=== PATIENT | male | born 1940 | race Caucasian/White ===

== ENCOUNTER 2019-09-12 15:15 | Emergency (ER) | payer MEDICARE, OTHER, SELFPAY | END 2019-09-12 16:55 | disposition home or self-care (01) | PROVIDERS: Emergency Provider Nurse Practitioner Family; Family Provider Internal Medicine; Visit Provider Nurse Practitioner Family | DX: S61.216A Laceration without foreign body of right little finger without damage to nail, initial encounter (principal); W23.0XXA Caught, crushed, jammed, or pinched between moving objects, initial encounter; Y92.009 Unspecified place in unspecified non-institutional (private) residence as the place of occurrence of the external cause; I10 Essential (primary) hypertension; Z79.01 Long term (current) use of anticoagulants; Z88.2 Allergy status to sulfonamides; Z87.891 Personal history of nicotine dependence | CPT/HCPCS: 12041; 73130; 99282; J2001 ==

== ENCOUNTER → 2019-10-01 11:13 | Outpatient (BNVA) | payer MEDICARE, OTHER, SELFPAY | PROVIDERS: Family Provider Internal Medicine; PCP Internal Medicine; Visit Provider Internal Medicine Cardiovascular Disease | DX: Z95.2 Presence of prosthetic heart valve (principal) | CPT/HCPCS: 85610 ==

== ENCOUNTER → 2019-10-16 10:52 | Outpatient (BNVA) | payer MEDICARE, OTHER, SELFPAY | PROVIDERS: Family Provider Internal Medicine; PCP Internal Medicine; Visit Provider Internal Medicine Cardiovascular Disease | DX: Z95.2 Presence of prosthetic heart valve (principal); I25.10 Atherosclerotic heart disease of native coronary artery without angina pectoris; I10 Essential (primary) hypertension; E78.5 Hyperlipidemia, unspecified; R60.9 Edema, unspecified | CPT/HCPCS: 85610 ==

== ENCOUNTER → 2019-10-27 10:08 | Outpatient (BNVA) | payer MEDICARE, OTHER, SELFPAY | PROVIDERS: Family Provider Internal Medicine; PCP Internal Medicine; Visit Provider Internal Medicine Cardiovascular Disease | DX: Z95.2 Presence of prosthetic heart valve (principal); I25.10 Atherosclerotic heart disease of native coronary artery without angina pectoris; I10 Essential (primary) hypertension; E78.5 Hyperlipidemia, unspecified; R60.9 Edema, unspecified | CPT/HCPCS: 85610 ==

== ENCOUNTER → 2019-11-03 10:39 | Outpatient (BNVA) | payer MEDICARE, OTHER, SELFPAY | PROVIDERS: Family Provider Internal Medicine; PCP Internal Medicine; Visit Provider Internal Medicine Cardiovascular Disease | DX: I25.10 Atherosclerotic heart disease of native coronary artery without angina pectoris (principal); I10 Essential (primary) hypertension; E78.5 Hyperlipidemia, unspecified; R60.9 Edema, unspecified; Z95.2 Presence of prosthetic heart valve | CPT/HCPCS: 85610 ==

== ENCOUNTER 2019-11-17 13:03 | Emergency (ER) | payer MEDICARE, OTHER, SELFPAY ==
[2019-11-17 13:05] VITALS: BP 133/78; PULSE 54; RESP 18; TEMP 36.9; O2SAT 62; BMI 27.9
--- NOTE | 2019-11-17 13:18 | ED_ITS ---
Entered by Tatiana Johnson, acting as scribe for Samy Jones MD HPI - SOB/Dyspnea General: Chief Complaint: General Medical Stated Complaint: BLE, HYPERGLYCEMIA Time Seen by Provider: 11/17/19 13:17 Source: family and EMS Mode of arrival: EMS Limitations: altered mental status and other (shortness of breath) History of Present Illness: MD elicited complaint: shortness of breath Onset (ago): day(s) Timing: constant and progressively worsening Severity: moderate Exacerbating factors: exertion and deep breaths Relieving factors: oxygen Treatment prior to arrival: oxygen Review of Systems Eyes: Denies: photophobia All/Imm: Denies: acute wheezing PFSH ED PFSH: Medical History (Updated 11/25/19 @ 00:00 by ) Atherosclerotic heart disease Patient had coronary bypass surgery along with aortic valve replacement on 05/06/2014. He had a DONOVAN to the LAD, saphenous venous graft to the OM branch of the circumflex artery and another Y graft from the obtuse marginal to the diagonal artery Coronary artery disease DJD (degenerative joint disease) Hyperlipidemia Hypertension Peripheral edema SAH (subarachnoid hemorrhage) from a fall Surgical History (Updated 11/17/19 @ 15:19 by Samy Jones MD) Aortic valve replaced Patient had a 23 mm bileaflet mechanical [place] valve at the aortic pos ition on 05/06/2014 History of tonsillectomy Hx of CABG Family History Other Alzheimers disease CAD (coronary artery disease) Social History Smoking and tobacco status: former smoker Alcohol intake: current Physical Exam Const: COMMON NORMALS: alert EXAM LIMITATIONS: no altered mental status GENERAL APPEARANCE: cooperative, well developed and in distress ORIENTATION/CONSCIOUSNESS: Yes awake; not confused HENMT: COMMON NORMALS: normocephalic, atraumatic, external ears normal and Normal external nose present HEAD & SCALP: normal to inspection, normocephalic and atraumatic FACE & SINUS: face symmetric NOSE: Normal external nose present EXTERNAL EAR: Yes external ears normal MOUTH: lip normal; no muffled voice Eye: COMMON NORMALS: EOMs intact bilaterally and conjunctivae normal GENERAL EYE: appearance normal, both eyes and all related structures CONJUNCTIVA: Yes conjunctivae normal Neck/C-Spine: GENERAL: Yes normal visual inspection and Yes trachea midline Resp: EFFORT & INSPECTION: Yes symmetric chest movement, Yes respiratory distress, Yes labored, Yes retractions and Yes uses accessory muscles AUSCULTATION: diminished lung sounds Cardio: COMMON NORMALS: regular rhythm RHYTHM: regular rhythm PERIPHERAL PULSES: radial pulses present GI: COMMON NORMALS: Soft to palpation INSPECTION: Yes normal to inspection PALPATION: Yes Soft to palpation, No Tenderness to palpation present (GI) and No Guarding due to palpation present (GI) Back/Pelvis: COMMON NORMALS: thoraco-lumbar ROM normal Extremity: COMMON NORMALS: normal to inspection GENERAL: Yes normal exam except as noted Neuro: COMMON NORMALS: moves all extremities, no focal motor deficits and no s ensory deficits noted SENSORIUM/ORIENTATION: Yes alert Psych: COMMON NORMALS: mental status grossly normal, Normal thought process present, cooperative, normal affect and speech normal SPEECH: Yes normal speech THOUGHT PROCESS: Normal thought process present Skin: COMMON NORMALS: no jaundice Course Vital Signs: Vital signs: Vital Signs Temperature 98.4 F 11/17/19 13:05 Pulse Rate 75 11/17/19 18:24 Respiratory Rate 27 H 11/17/19 18:24 Blood Pressure 146/85 11/17/19 18:24 Pulse Oximetry 92 11/17/19 18:24 MDM - SOB/Dyspnea Lab Data: Labs: Lab Results 11/17/19 11/17/19 11/17/19 Range/Units 13:25 13:35 13:53 WBC 15.8 H (4.0-10.0) 10^3/ uL RBC 3.18 L (4.1-5.3) 10^6/u L Hgb 9.7 L (11.7-16.6) g/dL Hct 31.6 L (42.0-52.0) % MCV 99.4 H (80-94) fL MCH 30.5 (28.0-34.0) pg MCHC 30.7 (30.0-36.0) g/dL RDW 13.6 (12.1-15.1) % Plt Count 159 (130-400) 10^3/c mm MPV 13.4 H (7.4-10.4) fL Neut % (Auto) 90.7 % Lymph % (Auto) 1.8 % [place] % (Auto) 6.6 % Eos % (Auto) 0.0 % Baso % (Auto) 0.1 % Neut # (Auto) 14.4 H (1.8-7.7) 10^3/u L Lymph # (Auto) 0.3 L (0.8-4.8) 10^3/u L [place] # (Auto) 1.0 H (0.2-0.9) 10^3/u L Eos # (Auto) 0.0 (0.0-0.8) 10^3/u L Baso # (Auto) 0.0 (0.0-0.1) 10^3/u L Nucleated RBC % (a uto) 0 % Nucleated RBCs # 0.0 /100WBC PT (10.5-13.3) SECO NDS INR (0.8-1.2) APTT (23.9-36.7) SECO NDS Specimen Type Arterial Sample Site Radial, left ABG pH 7.28 L (7.35-7.45) ABG pCO2 27.2 L (35-45) mmHg ABG pO2 64.6 L (80.0-100.0) mmH g ABG HCO3 12.8 L (22-26) mmol/L ABG Base Excess -12.6 L (-2.0-2.0) mmol/ L Marcio Test Pos Hematocrit 30.5 L (42-52) % O2 Delivery Device Nrb O2 Liters/Min 15.0 % Contact Acid Plant Operator Helper ID monro Sodium (136-145) mmol/L Potassium (3.5-5.1) mmol/L Chloride (98-107) mmol/L Carbon Dioxide (22-29) mmol/L Anion Gap (5-19) BUN (8-23) mg/dL Creatinine (0.7-1.2) mg/dL Glucose (65-115) mg/dL POC Glucose (70-110) mg/dL Calculated Osmolal ity (285-295) mOsm/k g Lactic Acid (0.5-2.2) mmol/L Lactate 4.4 H* (0.5-2.2) mmol/L Calcium (8.5-10.5) mg/dL Phosphorus (2.5-4.5) mg/dL Total Bilirubin (0.15-1.2) mg/dL AST (0-40) U/L ALT (0-41) U/L Alkaline Phosphata se (40-130) IU/L Troponin T Baselin e (0-15) ng/mL Troponin T 120 Min kaibab (0-15) ng/mL Delta Troponin T (0-10) ABS# NT-Pro-B Natriuret Pep (0-450) pg/mL Total Protein (6.6-8.7) g/dL Albumin (3.5-5.2) g/dL Globulin (1.3-4.6) g/dL Urine Color (Yellow) Urine Appearance (CLEAR) Urine pH (5-7) Ur Specific Gravit y (1.005-1.030) Urine Protein (Negative) Urine Glucose (UA) (Normal) Urine Ketones (Negative) Urine Blood (Negative) Urine Nitrate (Negative) Urine Bilirubin (NEGATIVE) Urine Urobilinogen (Negative) mg/dL Ur Leukocyte Jessy ase (Negative) Urine RBC (0-2) /hpf Urine WBC (0-5) /hpf Ur Squamous Epith Cells (0-5) Urine Bacteria (NONE) Hyaline Casts Influenza Type A A g (Negative) POC Influenza B Ag (Negative) 11/17/19 11/17/19 11/17/19 Range/Units 13:53 13:53 13:53 WBC (4.0-10.0) 10^3/ uL RBC (4.1-5.3) 10^6/u L Hgb (11.7-16.6) g/dL Hct (42.0-52.0) % MCV (80-94) fL MCH (28.0-34.0) pg MCHC (30.0-36.0) g/dL RDW (12.1-15.1) % Plt Count (130-400) 10^3/c mm MPV (7.4-10.4) fL Neut % (Auto) % Lymph % (Auto) % [place] % (Auto) % Eos % (Auto) % Baso % (Auto) % Neut # (Auto) (1.8-7.7) 10^3/u L Lymph # (Auto) (0.8-4.8) 10^3/u L [place] # (Auto) (0.2-0.9) 10^3/u L Eos # (Auto) (0.0-0.8) 10^3/u L Baso # (Auto) (0.0-0.1) 10^3/u L Nucleated RBC % (a uto) % Nucleated RBCs # /100WBC PT 25.90 H (10.5-13.3) SECO NDS INR 2.28 H (0.8-1.2) APTT 53.2 H (23.9-36.7) SECO NDS Specimen Type Sample Site ABG pH (7.35-7.45) ABG pCO2 (35-45) mmHg ABG pO2 (80.0-100.0) mmH g ABG HCO3 (22-26) mmol/L ABG Base Excess (-2.0-2.0) mmol/ L Marcio Test Hematocrit (42-52) % O2 Delivery Device O2 Liters/Min % Contact Acid Plant Operator Helper ID Sodium 130 L (136-145) mmol/L Potassium 5.5 H (3.5-5.1) mmol/L Chloride 99 (98-107) mmol/L Carbon Dioxide 13 L (22-29) mmol/L Anion Gap 23.5 H (5-19) BUN 63 H (8-23) mg/dL Creatinine 2.3 H (0.7-1.2) mg/dL Glucose 437 H (65-115) mg/dL POC Glucose (70-110) mg/dL Calculated Osmolal ity (285-295) mOsm/k g Lactic Acid (0.5-2.2) mmol/L Lactate (0.5-2.2) mmol/L Calcium 9.2 (8.5-10.5) mg/dL Phosphorus 5.6 H (2.5-4.5) mg/dL Total Bilirubin 1.0 (0.15-1.2) mg/dL AST 31 (0-40) U/L ALT 21 (0-41) U/L Alkaline Phosphata se 101 (40-130) IU/L Troponin T Baselin e 43 H (0-15) ng/mL Troponin T 120 Min kaibab (0-15) ng/mL Delta Troponin T (0-10) ABS# NT-Pro-B Natriuret Pep 5526 H (0-450) pg/mL Total Protein 7.3 (6.6-8.7) g/dL Albumin 3.2 L (3.5-5.2) g/dL Globulin 4.1 (1.3-4.6) g/dL Urine Color (Yellow) Urine Appearance (CLEAR) Urine pH (5-7) Ur Specific Gravit y (1.005-1.030) Urine Protein (Negative) Urine Glucose (UA) (Normal) Urine Ketones (Negative) Urine Blood (Negative) Urine Nitrate (Negative) Urine Bilirubin (NEGATIVE) Urine Urobilinogen (Negative) mg/dL Ur Leukocyte Jessy ase (Negative) Urine RBC (0-2) /hpf Urine WBC (0-5) /hpf Ur Squamous Epith Cells (0-5) Urine Bacteria (NONE) Hyaline Casts Influenza Type A A g (Negative) POC Influenza B Ag (Negative) 11/17/19 11/17/19 11/17/19 Range/Units 14:04 15:36 15:36 WBC (4.0-10.0) 10^3/ uL RBC (4.1-5.3) 10^6/u L Hgb (11.7-16.6) g/dL Hct (42.0-52.0) % MCV (80-94) fL MCH (28.0-34.0) pg MCHC (30.0-36.0) g/dL RDW (12.1-15.1) % Plt Count (130-400) 10^3/c mm MPV (7.4-10.4) fL Neut % (Auto) % Lymph % (Auto) % [place] % (Auto) % Eos % (Auto) % Baso % (Auto) % Neut # (Auto) (1.8-7.7) 10^3/u L Lymph # (Auto) (0.8-4.8) 10^3/u L [place] # (Auto) (0.2-0.9) 10^3/u L Eos # (Auto) (0.0-0.8) 10^3/u L Baso # (Auto) (0.0-0.1) 10^3/u L Nucleated RBC % (a uto) % Nucleated RBCs # /100WBC PT (10.5-13.3) SECO NDS INR (0.8-1.2) APTT (23.9-36.7) SECO NDS Specimen Type Sample Site ABG pH (7.35-7.45) ABG pCO2 (35-45) mmHg ABG pO2 (80.0-100.0) mmH g ABG HCO3 (22-26) mmol/L ABG Base Excess (-2.0-2.0) mmol/ L Marcio Test Hematocrit (42-52) % O2 Delivery Device O2 Liters/Min % Contact Acid Plant Operator Helper ID Sodium (136-145) mmol/L Potassium (3.5-5.1) mmol/L Chloride (98-107) mmol/L Carbon Dioxide (22-29) mmol/L Anion Gap (5-19) BUN (8-23) mg/dL Creatinine (0.7-1.2) mg/dL Glucose (65-115) mg/dL POC Glucose 411 (70-110) mg/dL Calculated Osmolal ity (285-295) mOsm/k g Lactic Acid (0.5-2.2) mmol/L Lactate (0.5-2.2) mmol/L Calcium (8.5-10.5) mg/dL Phosphorus (2.5-4.5) mg/dL Total Bilirubin (0.15-1.2) mg/dL AST (0-40) U/L ALT (0-41) U/L Alkaline Phosphata se (40-130) IU/L Troponin T Baselin e (0-15) ng/mL Troponin T 120 Min kaibab (0-15) ng/mL Delta Troponin T (0-10) ABS# NT-Pro-B Natriuret Pep (0-450) pg/mL Total Protein (6.6-8.7) g/dL Albumin (3.5-5.2) g/dL Globulin (1.3-4.6) g/dL Urine Color Yellow (Yellow) Urine Appearance Sl hazy (CLEAR) Urine pH 5 (5-7) Ur Specific Gravit y 1.025 (1.005-1.030) Urine Protein 1+ H (Negative) Urine Glucose (UA) 1+ (Normal) Urine Ketones Negative (Negative) Urine Blood Trace H (Negative) Urine Nitrate Negative (Negative) Urine Bilirubin Neg (NEGATIVE) Urine Urobilinogen Norm (Negative) mg/dL Ur Leukocyte Jessy ase Negative (Negative) Urine RBC 5-10 H (0-2) /hpf Urine WBC 0-4 H (0-5) /hpf Ur Squamous Epith Cells None (0-5) Urine Bacteria 2+ H (NONE) Hyaline Casts 0-4 H Influenza Type A A g Negative (Negative) POC Influenza B Ag Negative (Negative) 11/17/19 11/17/19 11/17/19 Range/Units 15:50 15:50 15:50 WBC (4.0-10.0) 10^3/ uL RBC (4.1-5.3) 10^6/u L Hgb (11.7-16.6) g/dL Hct (42.0-52.0) % MCV (80-94) fL MCH (28.0-34.0) pg MCHC (30.0-36.0) g/dL RDW (12.1-15.1) % Plt Count (130-400) 10^3/c mm MPV (7.4-10.4) fL Neut % (Auto) % Lymph % (Auto) % [place] % (Auto) % Eos % (Auto) % Baso % (Auto) % Neut # (Auto) (1.8-7.7) 10^3/u L Lymph # (Auto) (0.8-4.8) 10^3/u L [place] # (Auto) (0.2-0.9) 10^3/u L Eos # (Auto) (0.0-0.8) 10^3/u L Baso # (Auto) (0.0-0.1) 10^3/u L Nucleated RBC % (a uto) % Nucleated RBCs # /100WBC PT (10.5-13.3) SECO NDS INR (0.8-1.2) APTT (23.9-36.7) SECO NDS Specimen Type Sample Site ABG pH (7.35-7.45) ABG pCO2 (35-45) mmHg ABG pO2 (80.0-100.0) mmH g ABG HCO3 (22-26) mmol/L ABG Base Excess (-2.0-2.0) mmol/ L Marcio Test Hematocrit (42-52) % O2 Delivery Device O2 Liters/Min % Contact Acid Plant Operator Helper ID Sodium 130 L (136-145) mmol/L Potassium 5.2 H (3.5-5.1) mmol/L Chloride 99 (98-107) mmol/L Carbon Dioxide 14 L (22-29) mmol/L Anion Gap 22.2 H (5-19) BUN 62 H (8-23) mg/dL Creatinine 2.4 H (0.7-1.2) mg/dL Glucose 451 H (65-115) mg/dL POC Glucose (70-110) mg/dL Calculated Osmolal ity 288 (285-295) mOsm/k g Lactic Acid 2.9 H (0.5-2.2) mmol/L Lactate (0.5-2.2) mmol/L Calcium 9.1 (8.5-10.5) mg/dL Phosphorus (2.5-4.5) mg/dL Total Bilirubin (0.15-1.2) mg/dL AST (0-40) U/L ALT (0-41) U/L Alkaline Phosphata se (40-130) IU/L Troponin T Baselin e (0-15) ng/mL Troponin T 120 Min kaibab 47.41 H (0-15) ng/mL Delta Troponin T 4.41 (0-10) ABS# NT-Pro-B Natriuret Pep (0-450) pg/mL Total Protein (6.6-8.7) g/dL Albumin (3.5-5.2) g/dL Globulin (1.3-4.6) g/dL Urine Color (Yellow) Urine Appearance (CLEAR) Urine pH (5-7) Ur Specific Gravit y (1.005-1.030) Urine Protein (Negative) Urine Glucose (UA) (Normal) Urine Ketones (Negative) Urine Blood (Negative) Urine Nitrate (Negative) Urine Bilirubin (NEGATIVE) Urine Urobilinogen (Negative) mg/dL Ur Leukocyte Jessy ase (Negative) Urine RBC (0-2) /hpf Urine WBC (0-5) /hpf Ur Squamous Epith Cells (0-5) Urine Bacteria (NONE) Hyaline Casts Influenza Type A A g (Negative) POC Influenza B Ag (Negative) 11/17/19 Range/Units 17:49 WBC (4.0-10.0) 10^3/ uL RBC (4.1-5.3) 10^6/u L Hgb (11.7-16.6) g/dL Hct (42.0-52.0) % MCV (80-94) fL MCH (28.0-34.0) pg MCHC (30.0-36.0) g/dL RDW (12.1-15.1) % Plt Count (130-400) 10^3/c mm MPV (7.4-10.4) fL Neut % (Auto) % Lymph % (Auto) % [place] % (Auto) % Eos % (Auto) % Baso % (Auto) % Neut # (Auto) (1.8-7.7) 10^3/u L Lymph # (Auto) (0.8-4.8) 10^3/u L [place] # (Auto) (0.2-0.9) 10^3/u L Eos # (Auto) (0.0-0.8) 10^3/u L Baso # (Auto) (0.0-0.1) 10^3/u L Nucleated RBC % (a uto) % Nucleated RBCs # /100WBC PT (10.5-13.3) SECO NDS INR (0.8-1.2) APTT (23.9-36.7) SECO NDS Specimen Type Sample Site ABG pH (7.35-7.45) ABG pCO2 (35-45) mmHg ABG pO2 (80.0-100.0) mmH g ABG HCO3 (22-26) mmol/L ABG Base Excess (-2.0-2.0) mmol/ L Marcio Test Hematocrit (42-52) % O2 Delivery Device O2 Liters/Min % Contact Acid Plant Operator Helper ID Sodium (136-145) mmol/L Potassium (3.5-5.1) mmol/L Chloride (98-107) mmol/L Carbon Dioxide (22-29) mmol/L Anion Gap (5-19) BUN (8-23) mg/dL Creatinine (0.7-1.2) mg/dL Glucose (65-115) mg/dL POC Glucose 408 (70-110) mg/dL Calculated Osmolal ity (285-295) mOsm/k g Lactic Acid (0.5-2.2) mmol/L Lactate (0.5-2.2) mmol/L Calcium (8.5-10.5) mg/dL Phosphorus (2.5-4.5) mg/dL Total Bilirubin (0.15-1.2) mg/dL AST (0-40) U/L ALT (0-41) U/L Alkaline Phosphata se (40-130) IU/L Troponin T Baselin e (0-15) ng/mL Troponin T 120 Min kaibab (0-15) ng/mL Delta Troponin T (0-10) ABS# NT-Pro-B Natriuret Pep (0-450) pg/mL Total Protein (6.6-8.7) g/dL Albumin (3.5-5.2) g/dL Globulin (1.3-4.6) g/dL Urine Color (Yellow) Urine Appearance (CLEAR) Urine pH (5-7) Ur Specific Gravit y (1.005-1.030) Urine Protein (Negative) Urine Glucose (UA) (Normal) Urine Ketones (Negative) Urine Blood (Negative) Urine Nitrate (Negative) Urine Bilirubin (NEGATIVE) Urine Urobilinogen (Negative) mg/dL Ur Leukocyte Jessy ase (Negative) Urine RBC (0-2) /hpf Urine WBC (0-5) /hpf Ur Squamous Epith Cells (0-5) Urine Bacteria (NONE) Hyaline Casts Influenza Type A A g (Negative) POC Influenza B Ag (Negative) Discharge Plan Discharge Patient Disposition: Xfer Other Clinical Impression: Aortic valve replaced, Peripheral edema, Acute exacerbation of congestive heart failure, Pulmonary infiltrate, Acute respiratory distress, DKA (diabetic ketoacidoses), Acidosis, lactic, Anticoagulant long-term use Condition: Stable Referrals: Phil Alexis MD [Primary Care Provider] - Discharge Date/Time: 11/17/19 18:25 Coding Level of Care Code ED Press And Blow Machine Tender for g Fwd The documentation recorded by the Alex hanks Bridget Annette, accurately reflects the service I personally performed and the decisions made by , Samy Jones MD
[2019-11-17 13:22] VITALS: PULSE 52; O2SAT 79
--- NOTE | 2019-11-17 13:28 | XR_ITS ---
WS: [id number] XR chest 1V portable [id number] REASON FOR EXAM: resp failure FINDINGS: Cardiomegaly is noted. There is bilateral alveolar edema in both lung odom. Previous coronary bypass changes. There is a bleb in the right lung base. XR/XR chest 1V portable [id number] IMPRESSION: Acute pulmonary edema.
--- NOTE | 2019-11-17 13:30 | ECG_ITS ---
Measurements Intervals [place] Rate: 51 P: 31 HI: 252 QRS: -14 QRSD: 106 T: 56 QT: 470 QTc: 435 SINUS BRADYCARDIA WITH FIRST DEGREE AV BLOCK POSSIBLE LEFT ATRIAL ENLARGEMENT [-0.1mV P WAVE IN V1/V2] MODERATE INTRAVENTRICULAR CONDUCTION DELAY [105+ ms QRS DURATION, 80+ ms Q/S IN V1/V2, NO Q AND 60+ ms R IN I/aVL/V5/V6] NONSPECIFIC ST & T-WAVE ABNORMALITY No previous ECG available for comparison Electronically Signed On 11-17-2019 20:24:57 LOT WORKER by David Cope M.D. [email or web address]
[2019-11-17 13:38] LABS: ABG PCO2 27.2 mmHg (35-45); ABG PH Result 7.28 (7.35-7.45); Arterial Blood Gas Hematocrit 30.5 % (42-52); Base Excess ABG -12.6 mmol/L (-2.0-2.0); Blood Gas Allen Test Pos; Blood Gas Sample Site Radial, left; Blood Gas Sample Type Arterial; HCO3 ABG 12.8 mmol/L (22-26); Oxygen Device NRB; PO2 ABG 64.6 mmHg (80.0-100.0)
[2019-11-17 13:41] LABS: Basophils % 0.1 %; Hematocrit 31.6 % (42.0-52.0); Hemoglobin 9.7 g/dL (11.7-16.6); Lymphocytes # 0.3 10^3/uL (0.8-4.8); Lymphocytes % 1.8 %; Mean Corpuscular HGB Conc 30.7 g/dL (30.0-36.0); Mean Corpuscular Hemoglobin 30.5 pg (28.0-34.0); Mean Corpuscular Volume 99.4 fL (80-94); Mean Platelet Volume 13.4 fL (7.4-10.4); Monocytes % 6.6 %; Neutrophils # 14.4 10^3/uL (1.8-7.7); Neutrophils % 90.7 %; Nucleated Red Blood Cells % 0 %; Platelet Count 159 10^3/cmm (130-400); Red Blood Count 3.18 10^6/uL (4.1-5.3); Red Cell Distribution Width 13.6 % (12.1-15.1); White Blood Count 15.8 10^3/uL (4.0-10.0)
[2019-11-17 13:45] VITALS: PULSE 53; RESP 31; O2SAT 96
[2019-11-17 14:08] LABS: Glucose Point of Care 411 mg/dL (70-110)
[2019-11-17 14:20] LABS: INR 2.28 (0.8-1.2)
[2019-11-17 14:21] LABS: Partial Thromboplastin Time 53.2 SECONDS (23.9-36.7)
[2019-11-17 14:27] LABS: Lactate (Lactic Acid level) 4.4 mmol/L (0.5-2.2)
[2019-11-17 14:29] LABS: Alanine Aminotransferase 21 U/L (0-41); Albumin Level 3.2 g/dL (3.5-5.2); Alkaline Phosphatase 101 IU/L (40-130); Anion Gap 23.5 (5-19); Aspartate Amino Transferase 31 U/L (0-40); Blood Urea Nitrogen 63 mg/dL (8-23); Calcium 9.2 mg/dL (8.5-10.5); Carbon Dioxide 13 mmol/L (22-29); Chloride 99 mmol/L (98-107); Globulin 4.1 g/dL (1.3-4.6); Glucose 437 mg/dL (65-115); NT Pro B Type Natriuretic Pept 5526 pg/mL (0-450); Phosphorus 5.6 mg/dL (2.5-4.5); Potassium 5.5 mmol/L (3.5-5.1); Sodium 130 mmol/L (136-145); Total Protein 7.3 g/dL (6.6-8.7)
[2019-11-17 15:22] LABS: Troponin(5th) Baseline 43 ng/mL (0-15)
[2019-11-17] MEDS: FUROsemide 10 mg/mL SDV 10mL 80 MG IVP (15:22)
[2019-11-17 15:25] VITALS: PULSE 58; RESP 35; O2SAT 94
[2019-11-17] MEDS: piperacillin-tazobactam 3.375 GM in sodium chloride 0.9% (plus) 50 ML IV (15:29)
[2019-11-17 15:49] LABS: Add Urine Microscopic? YES; Bilirubin Urine Neg (NEGATIVE); Blood Urine Trace (Negative); Glucose Urine UA 1+ (Normal); Ketones Urine Negative (Negative); Leukocyte Esterase Urine Negative (Negative); Nitrate Urine Negative (Negative); Protein Urine 1+ (Negative); Specific Gravity, Urine 1.025 (1.005-1.030); Urine Appearance SL Hazy (CLEAR); Urine Color Yellow (Yellow); Urobilinogen Urine Norm (Negative); pH Urine 5 (5-7)
[2019-11-17 16:04] LABS: Bacteria Urine 2+; WBC Urine 0-4 /hpf (0-5)
[2019-11-17 16:05] LABS: Hyaline Casts Urine 0-4
[2019-11-17 16:06] LABS: Influenza A by IFA Negative (Negative); Influenza B by IFA Negative (Negative)
[2019-11-17 16:08] LABS: Lactic Sepsis W/Reflex 2.9 mmol/L (0.5-2.2)
[2019-11-17 16:09] LABS: Anion Gap 22.2 (5-19); Blood Urea Nitrogen 62 mg/dL (8-23); Calcium 9.1 mg/dL (8.5-10.5); Carbon Dioxide 14 mmol/L (22-29); Chloride 99 mmol/L (98-107); Glucose 451 mg/dL (65-115); Osmolality Calculated 288 mOsm/kg (285-295); Potassium 5.2 mmol/L (3.5-5.1); Sodium 130 mmol/L (136-145)
[2019-11-17 16:11] LABS: Troponin 5 2HR 47.41 ng/mL (0-15); Troponin 5 2HR Delta 4.41 ABS# (0-10)
[2019-11-17 17:40] LABS: Reflex Lactate Order REFLEX LACTIC ORDERD
--- NOTE | 2019-11-17 17:53 | PC.NURSE ---
Unable to document insulin drip with flowsheet. Insulin drip rate calculated using (BC-60) x 0.03. ((( not 0.3 as noted on MAR instructions )) Current bedside glucose: 408 mg/dL 408-04=743 338 x 0.03 = 10.44 unit/hr
[2019-11-17 17:56] VITALS: PULSE 66; RESP 40; O2SAT 92
[2019-11-17 18:24] VITALS: BP 146/85; PULSE 75; RESP 27; O2SAT 92
--- NOTE | 2019-11-17 19:30 | ECG_ITS ---
Measurements Intervals [place] Rate: 58 P: 40 MD: 260 QRS: -15 QRSD: 106 T: 69 QT: 442 QTc: 434 SINUS BRADYCARDIA WITH FIRST DEGREE AV BLOCK POSSIBLE LEFT ATRIAL ENLARGEMENT [-0.1mV P WAVE IN V1/V2] NONSPECIFIC T-WAVE ABNORMALITY No previous ECG available for comparison Electronically Signed On 11-17-2019 20:32:54 REED POLISHER by David Cope M.D. [email or web address]
[2019-11-17 19:37] LABS: Glucose Point of Care 408 mg/dL (70-110)
== END 2019-11-17 18:25 | disposition other institution (70) ==
PROVIDERS: Emergency Provider Emergency Medicine; Family Provider Internal Medicine; PCP Internal Medicine
DX: I11.0 Hypertensive heart disease with heart failure (principal); I50.9 Heart failure, unspecified; R91.8 Other nonspecific abnormal finding of lung field; R60.0 Localized edema; R06.03 Acute respiratory distress; E11.10 Type 2 diabetes mellitus with ketoacidosis without coma; E87.2 Acidosis; Z79.01 Long term (current) use of anticoagulants; Z95.2 Presence of prosthetic heart valve; I25.10 Atherosclerotic heart disease of native coronary artery without angina pectoris; E78.5 Hyperlipidemia, unspecified; Z95.1 Presence of aortocoronary bypass graft; Z87.891 Personal history of nicotine dependence
CPT/HCPCS: 36415; 36416; 36600; 71045; 80048; 80053; 81001; 82803; 82962; 83605; 83880; 84100; 84484; 85025; 85610; 85730; 87040; 87804; 93005; 94660; 96365; 96366; 96367; 96368; 96375; 99282; 99291; J1940; J2543